=== PATIENT | male | born 1980 | race Two or more races ===

== ENCOUNTER 2022-07-24 22:32 | Emergency (ER) | payer BC ==
[~2022-07-24] VITALS: Ht 177.8 cm; Wt 77.1 kg
[2022-07-25] MEDS ORDERED: PROTONIX40 MG PO (04:04)
[2022-07-25] MEDS ORDERED: PEPCID40 MG PO (04:04)
== END 2022-07-25 04:08 ==
LOC: ER 22:32
DX: K21.9 Gastro-esophageal reflux disease without esophagitis (principal)